=== PATIENT | male | born 1975 | race African-American/Black ===

== ENCOUNTER 2019-05-26 00:01 | Emergency (ER) | payer OTHER ==
[~2019-05-26] VITALS: Ht 180.3 cm; Wt 181.4 kg
[2019-05-26 00:49] LABS: BASOPHILS # (AUTO) 0.1 K/uL (0.0-8.0); BASOPHILS % (AUTO) 0.9 % (0.0-2.0); EOSINOPHILS # (AUTO) 0.1 K/uL (0.0-0.7); EOSINOPHILS % (AUTO) 0.9 % (0.0-7.0); HEMATOCRIT 43.3 % (36.7-47.1); HEMOGLOBIN 14.1 g/dL (12.5-16.3); LYMPHOCYTES # (AUTO) 2.2 K/uL (20.0-40.0); LYMPHOCYTES % (AUTO) 16.6 % (20.5-51.5); MEAN CORPUSCULAR HEMOGLOBIN 26.3 uug (23.8-33.4); MEAN CORPUSCULAR HGB CONC 33 g/dL (32.5-36.3); MEAN CORPUSCULAR VOLUME 81.1 fL (73.0-96.2); MONOCYTES # (AUTO) 0.9 K/uL (2.0-10.0); MONOCYTES % (AUTO) 6.8 % (0.0-11.0); NEUTROPHILS # (AUTO) 9.8 K/uL (1.8-8.9); NEUTROPHILS % (AUTO) 74.8 % (38.5-71.5); PLATELET COUNT (AUTO) 166 K/uL (152-348); RED BLOOD CELL COUNT(AUTO) 5.34 MIL/uL (4.06-5.63); WHITE BLOOD COUNT (AUTO) 13.1 K/uL (3.6-10.2)
[2019-05-26 00:58] LABS: *BILIRUBIN,URIN NEGATIVE (NEGATIVE); *BLOOD, URINE NEGATIVE (NEGATIVE); *CLARITY,URINE CLEAR (CLEAR); *COLOR,URINE LIGHT YELLOW (YELLOW); *KETONES,URINE NEGATIVE (NEGATIVE); *UROBILINOGEN,URINE 0.2 E.U./dl (NORMAL); LEUKOCYTE ESTERASE ,URINE NEGATIVE (NEGATIVE); NITRITE, URINE NEGATIVE (NEGATIVE); PH,URINE 6.5 (5.0-8.0); UGLUCOSE NEGATIVE (NEGATIVE)
[2019-05-26] MEDS ORDERED: OLANZAPINE 5 MG TABLET ONE (00:59)
[2019-05-26 01:07] LABS: CARBON DIOXIDE 28 mmol/L (21-32); CHLORIDE 105 mmol/L (98-107); CREATININE 1.2 mg/dL (0.6-1.3); GLUCOSE 153 mg/dL (74-106); UREA NITROGEN, BLOOD 10 mg/dL (7-18)
[2019-05-26 01:11] LABS: ALANINE AMINOTRANSFERASE 47 U/L (16-63); ALKALINE PHOSPHATASE 107 U/L (50-136); ASPARTATE AMINOTRANSFERASE 18 U/L (15-37); BILIRUBIN,DIRECT 0.1 mg/dL (0.0-0.2); BILIRUBIN,TOTAL 0.4 mg/dL (0.2-1.0)
[2019-05-26 01:12] LABS: ACETAMINOPHEN < 2.0 ug/mL (10-30)
[2019-05-26 01:13] LABS: ETHANOL 23 MG/DL (0-0); THYROID STIMULATING HORMONE 0.866 mIU/mL (0.358-3.740)
[2019-05-26] MEDS: OLANZAPINE 5 MG TABLET PO ONE (01:23)
[2019-05-26 02:15] LABS: *AMPHETAMINE, URINE NEGATIVE (NEGATIVE); *BARBITURATE, URINE NEGATIVE (NEGATIVE); *CANNABINOID, URINE NEGATIVE (NEGATIVE); *COCCAINE, URINE NEGATIVE (NEGATIVE); *OPIATE, URINE NEGATIVE (NEGATIVE); *PHENCYCLIDINE SCREEN,URINE NEGATIVE (NEGATIVE)
== END 2019-05-26 15:21 | disposition short-term general hospital (02) ==
LOC: ER 00:01
DX: F20.9 Schizophrenia, unspecified (principal); I48.91 Unspecified atrial fibrillation; J45.909 Unspecified asthma, uncomplicated; F32.9 Major depressive disorder, single episode, unspecified; Z88.8 Allergy status to other drugs, medicaments and biological substances
CPT/HCPCS: 36415; 71045; 80307; 84443; 85025; 85730; 93005; A4663; G0480; G0480-TC

== ENCOUNTER 2021-01-09 01:10 | Emergency (ER) | payer OTHER ==
[~2021-01-09] VITALS: Ht 180.3 cm; Wt 176.4 kg
[2021-01-09] MEDS ORDERED: OLANZAPINE 5 MG TABLET PO ONE (01:45)
[2021-01-09] MEDS ORDERED: IBUPROFEN 800 MG TABLET PO ONE (01:45)
[2021-01-09] MEDS ORDERED: OLANZAPINE 5 MG TABLET ONE (01:48)
[2021-01-09] MEDS ORDERED: IBUPROFEN 800 MG TABLET ONE (01:48)
[2021-01-09 02:27] LABS: BASOPHILS # (AUTO) 0.1 K/uL (0.0-8.0); BASOPHILS % (AUTO) 0.5 % (0.0-2.0); CARBON DIOXIDE 30 mmol/L (21-32); CHLORIDE 102 mmol/L (98-107); CREATININE 1.4 mg/dL (0.6-1.3); EOSINOPHILS # (AUTO) 0.5 K/uL (0.0-0.7); GLUCOSE 132 mg/dL (74-106); HEMATOCRIT 42.4 % (36.7-47.1); LYMPHOCYTES # (AUTO) 2.7 K/uL (20.0-40.0); LYMPHOCYTES % (AUTO) 21.7 % (20.5-51.5); MEAN CORPUSCULAR HEMOGLOBIN 27.3 uug (23.8-33.4); MEAN CORPUSCULAR HGB CONC 33 g/dL (32.5-36.3); MEAN CORPUSCULAR VOLUME 82.4 fL (73.0-96.2); MONOCYTES % (AUTO) 7.8 % (0.0-11.0); NEUTROPHILS # (AUTO) 8.1 K/uL (1.8-8.9); PLATELET COUNT (AUTO) 231 K/uL (152-348); RED BLOOD CELL COUNT(AUTO) 5.15 MIL/uL (4.06-5.63); UREA NITROGEN, BLOOD 25 mg/dL (7-18); WHITE BLOOD COUNT (AUTO) 12.3 K/uL (3.6-10.2)
[2021-01-09 02:42] LABS: ALANINE AMINOTRANSFERASE 26 U/L (16-63); ALKALINE PHOSPHATASE 108 U/L (50-136); ASPARTATE AMINOTRANSFERASE 11 U/L (15-37); BILIRUBIN,DIRECT 0.1 mg/dL (0.0-0.2); BILIRUBIN,TOTAL 0.3 mg/dL (0.2-1.0); TOTAL PROTEIN, SERUM 6.9 g/dL (6.4-8.2)
[2021-01-09 02:43] LABS: ETHANOL < 3 MG/DL (0-0)
[2021-01-09 02:45] LABS: ACETAMINOPHEN < 2.0 ug/mL (10-30)
--- NOTE | 2021-01-09 03:00 | NUR ---
Patient sleeping in bed. No distress. VSS.
--- NOTE | 2021-01-09 05:33 | NUR ---
Patient is medically cleared per Dr. García. Patient has been sleeping in bed. Easy to wake. Patient was able to stand up & provide urine sample, urinalysis & urine drug screen pending. Paged call for PET team evaluation, left message to Jeannine.
[2021-01-09 05:44] LABS: *BILIRUBIN,URIN NEGATIVE (NEGATIVE); *BLOOD, URINE NEGATIVE (NEGATIVE); *CLARITY,URINE CLEAR (CLEAR); *COLOR,URINE YELLOW (YELLOW); *KETONES,URINE NEGATIVE (NEGATIVE); *UROBILINOGEN,URINE 0.2 E.U./dl (NORMAL); LEUKOCYTE ESTERASE ,URINE NEGATIVE (NEGATIVE); NITRITE, URINE NEGATIVE (NEGATIVE); UGLUCOSE NEGATIVE (NEGATIVE)
[2021-01-09 06:01] LABS: *AMPHETAMINE, URINE POSITIVE (NEGATIVE); *CANNABINOID, URINE NEGATIVE (NEGATIVE); *COCCAINE, URINE NEGATIVE (NEGATIVE); *OPIATE, URINE NEGATIVE (NEGATIVE); *PHENCYCLIDINE SCREEN,URINE NEGATIVE (NEGATIVE)
--- NOTE | 2021-01-09 07:27 | NUR ---
Per Dr Blevins, this patient is for discharge when awake. PET evaluation is not indicated 2/2 patient denies being suicidal or homicidal on arrival to ER.
--- NOTE | 2021-01-09 07:28 | NUR ---
Cleaning Staff Supervisor assumes care-patient is sleeping, easily arousable, for discharge when more awake per MD. Patient denies suicidal or homicidal thoughts when asked.
[2021-01-09] MEDS ORDERED: DILTIAZEM PO (07:56)
[2021-01-09] MEDS ORDERED: ZYPREXA PO (07:56)
--- NOTE | 2021-01-09 10:44 | NUR ---
Patient ambulated to bathroom with brisk steady gait.
--- NOTE | 2021-01-09 10:51 | NUR ---
Patient is eating breakfast with good appetite, NAD.
--- NOTE | 2021-01-09 11:21 | NUR ---
Patient is cleaning himself in the bathroom. Face towels with skin hygiene products provided.
--- NOTE | 2021-01-09 11:31 | NUR ---
Patient given written and verbal discharge instructions. Patient verbalizes understanding & compliance of instructions. Patient is ambulatory with steady gait. Patient refuses offer of intermediate placement@this time. Patient was also given a list of available shelters in surrounding area.
[2021-01-09 11:40] VITALS: BP 149/80
[2021-01-09] MEDS ORDERED: DILTIAZEM HCL SR 60 MG CAP.SR.12H PO ONE (11:45)
[2021-01-09] MEDS ORDERED: DILTIAZEM HCL CD 180 MG CAP.SR.24H PO ONE (11:45)
== END 2021-01-09 12:01 | disposition home or self-care (01) ==
LOC: ER 01:12
DX: F20.9 Schizophrenia, unspecified (principal); F15.10 Other stimulant abuse, uncomplicated; Z20.822 Contact with and (suspected) exposure to COVID-19; I48.91 Unspecified atrial fibrillation; R60.0 Localized edema; Z59.0 Homelessness; E66.01 Morbid (severe) obesity due to excess calories; Z68.43 Body mass index [BMI] 50.0-59.9, adult; J45.909 Unspecified asthma, uncomplicated; F31.9 Bipolar disorder, unspecified; Z79.899 Other long term (current) drug therapy
CPT/HCPCS: 36415; 71045; 85025; 93005; A4663; G0480

== ENCOUNTER 2021-01-09 20:29 | Emergency (ER) | payer OTHER ==
[~2021-01-09] VITALS: Ht 180.3 cm; Wt 176.4 kg
[~2021-01-09 20:29] MED LIST: DILTIAZEM PO; ZYPREXA PO
[2021-01-09] MEDS ORDERED: OLANZAPINE 5 MG TABLET PO ONE (21:00)
[2021-01-09] MEDS ORDERED: OLANZAPINE 5 MG TABLET ONE (21:05)
[2021-01-09 21:14] LABS: BASOPHILS % (AUTO) 0.4 % (0.0-2.0); EOSINOPHILS # (AUTO) 0.4 K/uL (0.0-0.7); EOSINOPHILS % (AUTO) 3.6 % (0.0-7.0); HEMATOCRIT 42.8 % (36.7-47.1); LYMPHOCYTES # (AUTO) 2.2 K/uL (20.0-40.0); LYMPHOCYTES % (AUTO) 20.4 % (20.5-51.5); MEAN CORPUSCULAR HGB CONC 33 g/dL (32.5-36.3); MEAN CORPUSCULAR VOLUME 82.8 fL (73.0-96.2); MONOCYTES # (AUTO) 0.8 K/uL (2.0-10.0); MONOCYTES % (AUTO) 7.5 % (0.0-11.0); NEUTROPHILS # (AUTO) 7.4 K/uL (1.8-8.9); NEUTROPHILS % (AUTO) 68.1 % (38.5-71.5); PLATELET COUNT (AUTO) 219 K/uL (152-348); RED BLOOD CELL COUNT(AUTO) 5.17 MIL/uL (4.06-5.63); WHITE BLOOD COUNT (AUTO) 10.9 K/uL (3.6-10.2)
[2021-01-09 21:19] LABS: CARBON DIOXIDE 31 mmol/L (21-32); CHLORIDE 103 mmol/L (98-107); CREATININE 1.1 mg/dL (0.6-1.3); GLUCOSE 100 mg/dL (74-106); POTASSIUM 3.9 mmol/L (3.5-5.1); UREA NITROGEN, BLOOD 19 mg/dL (7-18)
[2021-01-09 21:25] LABS: ALANINE AMINOTRANSFERASE 26 U/L (16-63); ALKALINE PHOSPHATASE 108 U/L (50-136); ASPARTATE AMINOTRANSFERASE 10 U/L (15-37); BILIRUBIN,DIRECT 0.1 mg/dL (0.0-0.2); BILIRUBIN,TOTAL 0.2 mg/dL (0.2-1.0); ETHANOL < 3 MG/DL (0-0); TOTAL PROTEIN, SERUM 6.8 g/dL (6.4-8.2)
[2021-01-09 21:26] LABS: ACETAMINOPHEN < 2.0 ug/mL (10-30)
--- NOTE | 2021-01-09 22:10 | NUR ---
Patient was evaluated by Jeannine [facility] PET at bedside.
--- NOTE | 2021-01-09 22:57 | NUR ---
Patient discharged to home in stable condition. Written and verbal after care instructions given. Patient verbalizes understanding of instructions. Stressed follow up or return to ER for worsening s/s. Dr Zazueta made aware.
[2021-01-10 02:10] LABS: *AMPHETAMINE, URINE NEGATIVE (NEGATIVE); *CANNABINOID, URINE NEGATIVE (NEGATIVE); *COCCAINE, URINE NEGATIVE (NEGATIVE); *OPIATE, URINE NEGATIVE (NEGATIVE); *PHENCYCLIDINE SCREEN,URINE NEGATIVE (NEGATIVE)
== END 2021-01-09 23:12 | disposition home or self-care (01) ==
LOC: ER 20:30
DX: F20.9 Schizophrenia, unspecified (principal); F17.210 Nicotine dependence, cigarettes, uncomplicated; Z59.0 Homelessness; E66.01 Morbid (severe) obesity due to excess calories; Z68.43 Body mass index [BMI] 50.0-59.9, adult; Z88.8 Allergy status to other drugs, medicaments and biological substances; F31.9 Bipolar disorder, unspecified; Z86.79 Personal history of other diseases of the circulatory system; I48.91 Unspecified atrial fibrillation; Z79.899 Other long term (current) drug therapy
CPT/HCPCS: 36415; 85025; 93005; A4663; G0480

== ENCOUNTER 2021-01-11 19:40 | Emergency (ER) | payer OTHER ==
[~2021-01-11] VITALS: Ht 180.3 cm; Wt 165.6 kg
--- NOTE | 2021-01-11 20:00 | NUR ---
Patient arrived at the ER with c/o auditory hallucination stating "I hear all types of thing." Patient denies SI or wanting to hurt other. Was seen here on 01/09/21 for similar complaint.
--- NOTE | 2021-01-11 20:02 | NUR ---
Dr. Wolf at bedside for MSE.
[2021-01-11] MEDS ORDERED: ALBUTEROL SULFATE 2.5 MG/ 0.5 ML NEBU NEB ONE (20:15)
[2021-01-11 20:23] LABS: BASOPHILS # (AUTO) 0.1 K/uL (0.0-8.0); BASOPHILS % (AUTO) 0.5 % (0.0-2.0); EOSINOPHILS # (AUTO) 0.4 K/uL (0.0-0.7); EOSINOPHILS % (AUTO) 3.6 % (0.0-7.0); HEMATOCRIT 41.4 % (36.7-47.1); HEMOGLOBIN 13.6 g/dL (12.5-16.3); LYMPHOCYTES # (AUTO) 2.1 K/uL (20.0-40.0); LYMPHOCYTES % (AUTO) 21.5 % (20.5-51.5); MEAN CORPUSCULAR HGB CONC 33 g/dL (32.5-36.3); MEAN CORPUSCULAR VOLUME 82.4 fL (73.0-96.2); MONOCYTES # (AUTO) 0.7 K/uL (2.0-10.0); MONOCYTES % (AUTO) 6.7 % (0.0-11.0); NEUTROPHILS # (AUTO) 6.7 K/uL (1.8-8.9); NEUTROPHILS % (AUTO) 67.7 % (38.5-71.5); PLATELET COUNT (AUTO) 216 K/uL (152-348); RED BLOOD CELL COUNT(AUTO) 5.02 MIL/uL (4.06-5.63); WHITE BLOOD COUNT (AUTO) 9.9 K/uL (3.6-10.2)
[2021-01-11 20:37] LABS: ACETAMINOPHEN < 2.0 ug/mL (10-30); ALANINE AMINOTRANSFERASE 28 U/L (16-63); ALKALINE PHOSPHATASE 107 U/L (50-136); ASPARTATE AMINOTRANSFERASE 11 U/L (15-37); BILIRUBIN,DIRECT 0.1 mg/dL (0.0-0.2); BILIRUBIN,TOTAL 0.2 mg/dL (0.2-1.0); CARBON DIOXIDE 34 mmol/L (21-32); CHLORIDE 105 mmol/L (98-107); CREATININE 1.1 mg/dL (0.6-1.3); GLUCOSE 123 mg/dL (74-106); TOTAL PROTEIN, SERUM 6.6 g/dL (6.4-8.2); UREA NITROGEN, BLOOD 10 mg/dL (7-18)
[2021-01-11] MEDS ORDERED: ALBUTEROL SULFATE 2.5 MG/ 0.5 ML NEBU ONE (20:44)
[2021-01-11 20:51] LABS: ETHANOL < 3 MG/DL (0-0)
[2021-01-11] MEDS ORDERED: ALBU6.7H9 INH (21:22)
--- NOTE | 2021-01-11 21:45 | NUR ---
Patient discharged to home in stable condition. Written and verbal after care instructions given. Patient verbalizes understanding of instructions. Stressed follow up or return to ER for worsening s/s. Pt ambulated out of the ER with steady gait. All belongings with pt.
[2021-01-11 21:46] VITALS: BP 120/70
== END 2021-01-11 21:45 | disposition home or self-care (01) ==
LOC: ER 19:44
DX: F20.9 Schizophrenia, unspecified (principal); F31.9 Bipolar disorder, unspecified; I48.91 Unspecified atrial fibrillation; Z79.899 Other long term (current) drug therapy; R94.31 Abnormal electrocardiogram [ECG] [EKG]; I10 Essential (primary) hypertension; Z59.0 Homelessness; F17.210 Nicotine dependence, cigarettes, uncomplicated
CPT/HCPCS: 71045; 85025; 93005; 94640; A4663; G0480